=== PATIENT | male | born 1970 | race Caucasian/White ===

== ENCOUNTER 2016-04-17 10:09 | Emergency (ER) | payer OTHER ==
--- NOTE | 2016-04-17 10:35 | ERPHSYRPT ---
- History of Present Illness Time Seen by Provider: 04/17/16 10:25 Source: patient Exam Limitations: clinical condition Patient Subjective Stated Complaint: rt ankle pain Triage Nursing Assessment: noted swelling and pain to all over rt ankle for 4 days radiating to post calf. 2+ pitting edema noted. denies specific injury. bilat pedal pulse noted equal and strong Physician History: PATIENT WITH HISTORY OF DIABETES, INSULIN DEPENDENT, NONCOMPLIANT WITH DIET, COMPLAINS OF RIGHT ANKLE PAIN ASSOCIATED WITH SWELLING, PAIN UPON WEIGHT BEARING PAST 4 DAYS. DENIES HISTORY OF TRAUMA OR INJURY. Method of Injury: unknown Occurred: days ago Quality: constant, throbbing Severity of Pain-Max: moderate Severity of Pain-Current: moderate Lower Extremities Pain: ankle: right Modifying Factors: Improves With: movement Associated Symptoms: unable to bear weight (MARKED PAIN UPON WEIGHT BEARING) Allergies/Adverse Reactions: oxycodone [Oxycodone] Adverse Reaction (Verified 04/17/16 10:18) Home Medications: Insulin Regular, Human [Humulin R] 1 unit SQ UD 11/17/13 [History] NPH, Human Insulin Isophane [Humulin N] 25 unit SQ DAILY 11/17/13 [History] Gabapentin [Neurontin] 300 mg PO DAILY 01/11/14 [History] NPH, Human Insulin Isophane [Humulin N] 20 units SQ HS 01/11/14 [History] Insulin Glargine [Lantus Insulin] 10 unit SQ HS 04/17/16 [History] Hx Tetanus, Diphtheria Vaccination/Date Given: Yes Hx Influenza Vaccination/Date Given: No Hx Pneumococcal Vaccination/Date Given: No Immunizations Up to Date: Yes - Review of Systems Constitutional: No Symptoms Musculoskeletal: Injury, Joint Pain, Joint Swelling Neurological: No Symptoms Psychological: No Symptoms - Past Medical History Pertinent Past Medical History: Yes Neurological History: Peripheral Neuropathy ENT History: No Pertinent History Cardiac History: No Pertinent History Respiratory History: No Pertinent History Endocrine Medical History: Diabetes Type II Musculoskeletal History: Osteoarthritis GI Medical History: No Pertinent History History: No Pertinent History Psycho-Social History: No Pertinent History Male Reproductive Disorders: No Pertinent History Other Medical History: OSTEOMYLITIS - Past Surgical History Past Surgical History: Yes Neuro Surgical History: No Pertinent History Cardiac: No Pertinent History Respiratory: No Pertinent History Gastrointestinal: No Pertinent History Genitourinary: No Pertinent History Musculoskeletal: Orthopedic Surgery Male Surgical History: Other Other Surgical History: bilat feet. KNEE. HAND AND THUMB (r) - Social History Smoking Status: Current every day smoker How long have you smoked: 20 Exposure to second hand smoke: Yes Drug Use: none Patient Lives Alone: No - Nursing Vital Signs Nursing Vital Signs: Initial Vital Signs Temperature 98.1 F Temperature Source Oral Pulse Rate 103 Respiratory Rate 18 Blood Pressure [Right Arm] 129/72 Pain Intensity 4 - Physical Exam General Appearance: alert Neck Exam: normal inspection, other (NO WHEEZES OR RHONCHI) Cardiovascular/Respiratory Exam: chest non-tender, normal breath sounds, no JVD Back Exam: No vertebral tenderness Ankle Exam: right ankle: limited range of motion, pain, soft tissue tenderness ( BIMALLEOLAR TENDERNSS WITH SWELLING 2+ PITTNG EDEMA, BILATERAL PEDIS PULSES 2+) , swelling Foot Exam: bilateral foot: non-tender, swelling (RIGHT FOOT 2+ PITTING EDEMA, LEFT FOOT 1+ PITTING EDEMA, NONTENDER) Neuro/Tendon Exam: normal sensation, normal motor functions Mental Status Exam: alert, oriented x 3, cooperative Skin Exam: normal color, warm, dry SpO2 Interpretation: normal SpO2: 96 Oxygen Delivery: Room Air - Radiology Exams Right Ankle X-ray Interpretation: Interpreted by me (SOFT TISSUE SWELLING, NO EVIDENCE OF FRACTURE OR DIARRHEA) - Radiology Ultrasound Exam Right Venous Lower Extremity Ultrasound: discussed w/radiologist (NO EVIDENCE OF DVT) Ordered Tests: Active Orders 24 hr Category Date Time Status Crutches STAT Care 04/17/16 11:45 Ordered Splint STAT Care 04/17/16 11:46 Ordered ANKLE (3 VIEWS) Stat Exams 04/17/16 10:30 Completed VENOUS UNILAT/LIMITED EXTREMIT [US] Stat Exams 04/17/16 11:00 Completed - Progress Progress Note: 04/17/16 11:34 PATIENT REFUSED PAIN MEDICATIONS, PROVIDED VELCRO ANKLE SPLINT WITH CRUTCHES Counseled pt/family regarding: diagnosis, need for follow-up, rad results - Departure Time of Disposition: 12:00 Departure Disposition: Home Clinical Impression: RIGHT ANKLE STRAIN, DEPENDENT EDEMA LOWER EXTREMITIES Condition: Stable Critical Care Time: No Additional Instructions: AMBULATE USING CRUTCHES NONWEIGHT BEARING RIGHT FOOT FOR 1 WEEK. ELEVATE FEET WHILE SITTING OR SUPINE POSITION. TAKE LASIX 40MG EACH MORNING ALONG WITH KLOR CON 20MEQ DAILY FOR 5 DAYS TO REDUCE LEG AND FEET SWELLING. CONSULT YOUR FAMILY PHYSICIAN FOR FOLLOWUP IN 1 WEEK. Prescriptions: Furosemide 40 mg [Lasix 40 MG] 40 mg PO DAILY #5 tablet Potassium Chloride 20 Meq [Klor-Con 20 MEQ] 20 meq PO DAILY #5 tab
--- NOTE | 2016-04-17 11:09 | XRAY ---
Indication: Pain. No known injury. Comparison: None 3 views of the right ankle demonstrates mild soft tissue swelling and midfoot tarsal spurring. No other bony, articular, or soft tissue abnormalities.
--- NOTE | 2016-04-17 11:39 | XRAY ---
Indication: Pain and swelling. Two-dimensional sonogram and color Doppler imaging of the major venous vessels of the right leg was performed. Comparison: November 17, 2013. Again no thrombus seen in the examined deep venous vessels of the right leg including greater saphenous vein. Veins demonstrate normal compressibility. Venous waveforms are normal with and without augmentation. Impression: Right leg again negative for DVT.
[2016-04-17 12:03] VITALS: BP 136/88; PULSE 79; O2SAT 100
== END 2016-04-17 12:03 | disposition home or self-care (01) ==
LOC: ED 10:09
DX: S93.401A Sprain of unspecified ligament of right ankle, initial encounter (principal); R60.9 Edema, unspecified; E11.9 Type 2 diabetes mellitus without complications; Z79.4 Long term (current) use of insulin; G62.9 Polyneuropathy, unspecified
CPT/HCPCS: 73610; 93971; 99284

== ENCOUNTER 2016-10-03 13:04 | Emergency (ER) | payer OTHER ==
[2016-10-03] MEDS ORDERED: Sodium Chloride 0.9% 1000 ML 1,000 ML ONE (13:27)
[2016-10-03] MEDS ORDERED: Sodium Chloride 0.9% 1000 ML 1,000 ML IV SCH (13:30)
[2016-10-03 13:35] LABS: Mean Cell Volume 84.7 fl (78-100); Mean Corpuscular Hemoglobin 28.1 pg (26-32); Mean Platelet Volume 10.4 fl (6-9.5); Platelet Count 257 K/mm3 (150-450); Red Blood Count 5.37 M/mm3 (4.1-5.6); Red Cell Distribution Width 13.8 % (11.5-14.0); White Blood Count 14.3 K/mm3 (4.0-10.5)
[2016-10-03 13:40] LABS: VBG BASE EXCESS 5.5 (-2.0-2.0); VBG HCO3- 32.5 meq/L (22-28); VBG HEMOGLOBIN 15.8; VBG O2 SATURATION 31.9 (95-100); VBG POTASSIUM 4.7 (3.5-5.1); VBG pH 7.38 (7.32-7.42)
[2016-10-03 13:41] LABS: VBG CARBOXYHEMOGLOBIN 7.9 % T HGB (0.0-6.9)
[2016-10-03] MEDS ORDERED: Hydromorphone 1 mg/ml Ampule IV ONE (13:46)
[2016-10-03] MEDS ORDERED: Hydromorphone 1 mg/ml Ampule ONE (13:52)
--- NOTE | 2016-10-03 13:52 | ERPHSYRPT ---
- History of Present Illness Time Seen by Provider: 10/03/16 13:20 Source: patient, family Patient Subjective Stated Complaint: pt here to be evaluated for foot infection , enlarged lymph nodes. blood sugar high on home better, has taken 15u lantus, 7un reg, 30 n, has not check bs since. Triage Nursing Assessment: pt walked in, alert, resp easy, skin w/d pink, has post op shoe and dressing to foot, surg 09/06. 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 Pt was doing ok and had sutures removed. He has 3 days of foot pain, swelling, redness. Some chills. No fever. He had labs thru [facility] 3 days ago and was called and told he had an infection and was called out amoxil and flagyl which he is taking currently. He has swollen lymph nodes in the right groin and reports retracting right testicle since before his surgery. The lymph nodes are more swollen and more painful. Last tetanus vaccine up to date. Pain moderately severe. Sugar was hi at home. He was seen in office today for lab follow up and referred to ER for admission. He reports consideration of foot MRI and abdominal CT scan. Family notified Dr Tee- Coil Wrapper. Timing/Duration: day(s) (3) Severity: severe Allergies/Adverse Reactions: oxycodone [Oxycodone] Adverse Reaction (Verified 10/03/16 13:17) Home Medications: Insulin Regular, Human [Humulin R] 1 unit SQ UD 11/17/13 [History] NPH, Human Insulin Isophane [Humulin N] 30 unit SQ DAILY 11/17/13 [History] Gabapentin [Neurontin] 300 mg PO DAILY 01/11/14 [History] NPH, Human Insulin Isophane [Humulin N] 25 units SQ HS 01/11/14 [History] Insulin Glargine [Lantus Insulin] 15 unit SQ BID 04/17/16 [History] Amoxicillin/Potassium Clav [Augmentin 875 mg (Amox Tr-K Clv 875-125 mg)] 1 ea BID 10/03/16 [History] Ibuprofen 200 mg [Motrin 200 mg] 800 mg TID 10/03/16 [History] Metronidazole 500 mg [Flagyl 500 MG] 500 mg TID 10/03/16 [History] Hx Tetanus, Diphtheria Vaccination/Date Given: Yes Hx Influenza Vaccination/Date Given: No Hx Pneumococcal Vaccination/Date Given: No Immunizations Up to Date: Yes - Review of Systems Constitutional: Chills, No Fever Eyes: No Symptoms Ears, Nose, & Throat: No Symptoms Respiratory: No Cough, No Dyspnea Cardiac: No Chest Pain Abdominal/Gastrointestinal: Nausea (with abtx this AM), No Abdominal Pain, No Diarrhea Genitourinary Symptoms: No Dysuria Musculoskeletal: Joint Redness (right foot), No Back Pain, No Injury Neurological: No Focal Weakness, No Headache Psychological: Emotional Lability (irritable when in pain) All Other Systems: Reviewed and Negative - Past Medical History Pertinent Past Medical History: Yes Neurological History: Peripheral Neuropathy ENT History: No Pertinent History Cardiac History: No Pertinent History Respiratory History: No Pertinent History Endocrine Medical History: Diabetes Type II Musculoskeletal History: Osteoarthritis GI Medical History: No Pertinent History History: No Pertinent History Psycho-Social History: No Pertinent History Male Reproductive Disorders: No Pertinent History Other Medical History: Osteomyelitis - Past Surgical History Past Surgical History: Yes Neuro Surgical History: No Pertinent History Cardiac: No Pertinent History Respiratory: No Pertinent History Gastrointestinal: No Pertinent History Genitourinary: No Pertinent History Musculoskeletal: Orthopedic Surgery Male Surgical History: Testicular Surgery, Other Other Surgical History: bilat feet. KNEE. HAND AND THUMB (r) - Social History Smoking Status: Current every day smoker How long have you smoked: 20 Exposure to second hand smoke: Yes Drug Use: marijuana Patient Lives Alone: No - Nursing Vital Signs Nursing Vital Signs: Initial Vital Signs Temperature 99.0 F 10/03/16 13:06 Pulse Rate 99 H 10/03/16 13:06 Respiratory Rate 18 10/03/16 13:06 Blood Pressure 150/92 10/03/16 13:06 O2 Sat by Pulse Oximetry 99 10/03/16 13:06 Pain Scale Pain Intensity 8 - Physical Exam General Appearance: alert Eye Exam: PERRL/EOMI Ears, Nose, Throat Exam: normal ENT inspection, moist mucous membranes Neck Exam: normal inspection, supple Respiratory Exam: rhonchi, wheezing (mild) Cardiovascular Exam: regular rate/rhythm, tachycardia, No murmur Gastrointestinal/Abdomen Exam: soft, No tenderness, No distention, No mass, No guarding Male Genitalia Exam: normal genitalia, testicular tenderness (mild right, no mass or swelling, cremasteric intact.) Extremity Exam: other (right foot red, swollen, tender. Minimal drng lateral wound. Pulse intact. Appears to be deep space foot infection.) Neurologic Exam: alert, oriented x 3, cooperative, sensation nml, No motor deficits Skin Exam: warm, dry Lymphatic Exam: inguinal node tender (R) (multi) SpO2 Interpretation: normal SpO2: 99 Oxygen Delivery: Room Air - Course Nursing assessment & vital signs reviewed: Yes - Radiology Exams lower leg/foot X-ray Interpretation: Teleradiologist Report (post op change, swelling, subcut emphysema on lateral foot) Ordered Tests: Active Orders 24 hr Category Date Time Status ACCUCHECK [Accucheck] STAT Care 10/03/16 13:25 Active Clean Catch Urine Specimen STAT Care 10/03/16 13:20 Active IV Insertion STAT Care 10/03/16 13:20 Active FOOT (MINIMUM 3 VIEWS) Stat Exams 10/03/16 13:46 Completed LOWER LEG Stat Exams 10/03/16 13:46 Completed BLOOD CULTURE Stat Lab 10/03/16 13:25 Received CBC W DIFF Stat Lab 10/03/16 13:25 Completed CMP Stat Lab 10/03/16 13:25 Completed CULTURE,URINE Stat Lab 10/03/16 14:25 Received Erythrocyte Sedimentation Rate Stat Lab 10/03/16 13:25 Completed Lactic Acid Stat Lab 10/03/16 13:25 Completed Manual Differential NC Stat Lab 10/03/16 13:25 Completed UA W/ MICROSCOPIC Stat Lab 10/03/16 14:25 Completed VENOUS BLOOD GAS Stat Lab 10/03/16 13:25 Completed Medication Summary Generic Name Dose Route Start Last Admin Trade Name Freq PRN Reason Stop Dose Admin Sodium Chloride 1,000 mls @ 100 mls/hr 10/03/16 13:30 10/03/16 13:31 Sodium Chloride 0.9% 1000 Ml IV 11/02/16 13:29 100 mls/hr .Q10H ANY Administration Piperacillin Sod/Tazobactam Sod 3.375 gm in 100 mls @ 200 mls/hr 10/03/16 14: 45 10/03/16 14:54 Zosyn 3.375gm/100 Ml D5w IV 10/03/16 15:14 200 mls/hr STAT STA Administration Vancomycin HCl 1 gm/ Sodium 250 mls @ 167 mls/hr 10/03/16 15:00 10/03/16 15: 09 Chloride IV 10/03/16 16:30 167 mls/hr 1500 ANY Administration Discontinued Medications Generic Name Dose Route Start Last Admin Trade Name Freq PRN Reason Stop Dose Admin Hydromorphone HCl 1 mg 10/03/16 13:46 10/03/16 13:54 Hydromorphone 1 Mg/Ml Ampule IV 10/03/16 13:47 1 mg STAT ONE Administration Hydromorphone HCl Confirm 10/03/16 13:52 Hydromorphone 1 Mg/Ml Ampule Administered 10/03/16 13:53 Dose 1 mg .ROUTE .STK-MED ONE Piperacillin Sod/Tazobactam Sod Confirm 10/03/16 14:52 Zosyn 3.375gm/100 Ml D5w Administered 10/03/16 14:53 Dose 3.375 gm in 100 mls @ ud IV .STK-MED ONE Non-Formulary Medication 1 each 10/03/16 14:45 Pharmacy Dosing Request IJ 10/03/16 14:46 STAT ONE Lab/Rad Data: Laboratory Result Diagrams 10/03/16 13:25 10/03/16 13:25 Laboratory Results 10/03/16 10/03/16 10/03/16 Range/Units 14:25 13:25 13:25 WBC (4.0-10.5) K/mm3 RBC (4.1-5.6) M/mm3 Hgb (12.5-18.0) gm/dl Hct (42-50) % MCV (78-100) fl MCH (26-32) pg MCHC (32-36) g/dl RDW (11.5-14.0) % Plt Count (150-450) K/mm3 MPV (6-9.5) fl Segmented Neutrophils (36.-66.) % Lymphocytes (Manual) (24-44) % Monocytes (Manual) (0.0-12.0) % Eosinophils (Manual) (0.00-3.0) % Differential Comment Atypical Lymphocytes % Toxic Granulation Platelet Estimate (NORMAL) ESR (0-15) mm/hr VBG pH 7.38 (7.32-7.42) VBG pCO2 at Pat Temp 55 (42-55) mm/Hg VBG pO2 at Pat Temp 16 L (25-40) mm/Hg VBG HCO3 32.5 H* (22-28) meq/L VBG O2 Sat ([place]) 31.9 L (95-100) VBG Base Excess 5.5 H (-2.0-2.0) VBG Hemoglobin 15.8 VBG Carboxyhemoglobin 7.9 H* (0.0-6.9) % T HGB POC Potassium 4.7 (3.5-5.1) Sodium (136-145) mEq/L Potassium (3.5-5.1) mEq/L Chloride (98-107) mEq/L Carbon Dioxide (21-32) mEq/L Anion Gap (5-15) MEQ/L BUN (9-20) mg/dL Creatinine (0.55-1.30) mg/dl Estimated GFR ML/MIN Glucose (70-110) MG/DL Lactic Acid 1.5 (0.4-2.0) Calcium (8.5-10.1) mg/dL Total Bilirubin (0.2-1.0) mg/dL AST (15-37) U/L ALT (12-78) U/L Alkaline Phosphatase (46-116) U/L Serum Total Protein (6.4-8.2) gm/dL Albumin (3.4-5.0) g/dL Ur Collection Type VOID Urine Color YELLOW (YELLOW) Urine Appearance CLEAR (CLEAR) Urine pH 5.0 (5-6) Ur Specific [place] 1.020 (1.005-1.025) Urine Protein 3+ (Negative) Urine Ketones NEGATIVE (NEGATIVE) Urine Blood 250 (0-5) Freddie/ul Urine Nitrite NEGATIVE (NEGATIVE) Urine Bilirubin NEGATIVE (NEGATIVE) Urine Urobilinogen NORMAL (0-1) mg/dL Ur Leukocyte Esterase TRACE (NEGATIVE) Urine Microscopic RBC 0-2 (0-2) /HPF Urine Microscopic WBC 5-10 (0-5) /HPF Ur Epithelial Cells FEW (FEW) /HPF Urine Bacteria MODERATE (NEGATIVE) /HPF Hyaline Casts 2-5 (0-2) /LPF Urine Glucose 250 (NEGATIVE) mg/dL Specimen Received 8/17/17 1425 10/03/16 10/03/16 10/03/16 Range/Units 13:25 13:25 13:25 WBC 14.3 H (4.0-10.5) K/mm3 RBC 5.37 (4.1-5.6) M/mm3 Hgb 15.1 (12.5-18.0) gm/dl Hct 45.5 (42-50) % MCV 84.7 (78-100) fl MCH 28.1 (26-32) pg MCHC 33.2 (32-36) g/dl RDW 13.8 (11.5-14.0) % Plt Count 257 (150-450) K/mm3 MPV 10.4 H (6-9.5) fl Segmented Neutrophils 66 (36.-66.) % Lymphocytes (Manual) 22 L (24-44) % Monocytes (Manual) 9 (0.0-12.0) % Eosinophils (Manual) 1 (0.00-3.0) % Differential Comment NORMAL Atypical Lymphocytes 2 % Toxic Granulation 1+ Platelet Estimate NORMAL (NORMAL) ESR 7 (0-15) mm/hr VBG pH (7.32-7.42) VBG pCO2 at Pat Temp (42-55) mm/Hg VBG pO2 at Pat Temp (25-40) mm/Hg VBG HCO3 (22-28) meq/L VBG O2 Sat ([place]) (95-100) VBG Base Excess (-2.0-2.0) VBG Hemoglobin VBG Carboxyhemoglobin (0.0-6.9) % T HGB POC Potassium (3.5-5.1) Sodium 136 (136-145) mEq/L Potassium 4.5 (3.5-5.1) mEq/L Chloride 99 (98-107) mEq/L Carbon Dioxide 29.1 (21-32) mEq/L Anion Gap 12.8 (5-15) MEQ/L BUN 29 H (9-20) mg/dL Creatinine 1.65 H (0.55-1.30) mg/dl Estimated GFR 48 ML/MIN Glucose 213 H (70-110) MG/DL Lactic Acid (0.4-2.0) Calcium 9.5 (8.5-10.1) mg/dL Total Bilirubin 0.20 (0.2-1.0) mg/dL AST 12 L (15-37) U/L ALT 15 (12-78) U/L Alkaline Phosphatase 92 (46-116) U/L Serum Total Protein 7.9 (6.4-8.2) gm/dL Albumin 3.0 L (3.4-5.0) g/dL Ur Collection Type Urine Color (YELLOW) Urine Appearance (CLEAR) Urine pH (5-6) Ur Specific [place] (1.005-1.025) Urine Protein (Negative) Urine Ketones (NEGATIVE) Urine Blood (0-5) Freddie/ul Urine Nitrite (NEGATIVE) Urine Bilirubin (NEGATIVE) Urine Urobilinogen (0-1) mg/dL Ur Leukocyte Esterase (NEGATIVE) Urine Microscopic RBC (0-2) /HPF Urine Microscopic WBC (0-5) /HPF Ur Epithelial Cells (FEW) /HPF Urine Bacteria (NEGATIVE) /HPF Hyaline Casts (0-2) /LPF Urine Glucose (NEGATIVE) mg/dL Specimen Received - Progress Progress Note: 10/03/16 13:53 Explained plan to patient including labs and xray. He will need admission and IV abtx. May need transferred to his surgeon. 10/03/16 14:49 He has post op diabetic deep space infection. Lymph nodes in groin likely reactive but need to be followed. Called Dr Jeff who advised best to transfer to his surgeon. Called Dr Toni Lopez his foot surgeon who advised transfer to [facility]. Paging hospitalist thru transfer nurse. Pt and family aware and agree with plan. 10/03/16 15:[address] Celestina Woody. She and Dr Lopez accept transfer to [facility]. Counseled pt/family regarding: lab results, diagnosis, need for follow-up, rad results, smoking cessation - Departure Time of Disposition: 15:17 Departure Disposition: Transfer ([facility]) Clinical Impression: Type 2 diabetes mellitus with right diabetic foot infection, Inguinal lymphadenitis, Acute kidney injury Condition: Fair Critical Care Time: No Referrals: DESHAWN SANTILLAN [Primary Care Provider] -
[2016-10-03 13:58] LABS: ANION GAP 12.8 MEQ/L (5-15); BILIRUBIN,TOTAL 0.2 mg/dL (0.2-1.0); Carbon Dioxide 29.1 mEq/L (21-32); Potassium 4.5 mEq/L (3.5-5.1); Total Protein 7.9 gm/dL (6.4-8.2)
--- NOTE | 2016-10-03 14:26 | XRAY ---
Indication: Ankle/foot cellulitis. Comparison: November 17, 2013. 2 views of the right lower leg again demonstrates medial/lateral knee mild degenerative changes minimally worsened. No new/acute bony, articular, or soft tissue abnormalities.
--- NOTE | 2016-10-03 14:30 | XRAY ---
Indication: Ankle/foot cellulitis. Comparison: None. 3 nonweightbearing views of the right foot demonstrates tiny posterior heel spur, moderate degenerative changes of the mid tarsal bones, 2nd cuneiform deformity presumed from old injury, and remote appearing resection of the distal 4th/5h metatarsals. There is forefoot soft tissue swelling greatest adjacent to the 5th metatarsal where there is subtle soft tissue radiolucency concerning for gas-forming bacterial infection. No suspicious bony lesions or osseous destructive process. Impression: 1. Forefoot soft tissue swelling with subtle soft tissue emphysema laterally concerning for gas-forming bacterial infection. No evidence for osteomyelitis. 2. Mid tarsal degenerative changes and remote appearing 2nd cuneiform deformity. 3. Distal 4th/5th metatarsal resection.
[2016-10-03 14:32] LABS: ADD URINE CULTURE? YES (NO); Bilirubin NEGATIVE (NEGATIVE); Blood 250 Ery/ul (0-5); COMPLETE URINE MICROSCOPIC? YES; Collection Type VOID; Glucose 250 mg/dL (NEGATIVE); Leukocyte Esterase TRACE (NEGATIVE)
[2016-10-03 14:38] LABS: Bacteria MODERATE /HPF (NEGATIVE); Epithelial Cells FEW /HPF (FEW)
[2016-10-03] MEDS ORDERED: PHARMACY DOSING REQUEST IJ ONE (14:45)
[2016-10-03] MEDS ORDERED: Zosyn 3.375GM/100 Ml D5W 3.375 GM/100 ML IVPB IV STA (14:45)
[2016-10-03 14:46] LABS: ATYPICAL LYMPHS 2 %; Eosinophil 1 % (0.00-3.0); Total Cells Counted 100; Toxic Granulation 1+
[2016-10-03 14:47] LABS: Platelet Estimate NORMAL (NORMAL)
[2016-10-03] MEDS ORDERED: Zosyn 3.375GM/100 Ml D5W 3.375 GM/100 ML IVPB IV ONE (14:52)
[2016-10-03] MEDS ORDERED: VANCOCIN 1 GM VIAL*** 1 GM in Sodium Chloride 0.9% 250 ML 250 ML IV SCH (15:00)
[2016-10-03 15:16] VITALS: BP 131/86; PULSE 99
[2016-10-03 15:18] VITALS: O2SAT 99
== END 2016-10-03 16:01 ==
LOC: ED 13:04
DX: L08.89 Other specified local infections of the skin and subcutaneous tissue (principal); E13.9 Other specified diabetes mellitus without complications; I88.8 Other nonspecific lymphadenitis; N17.9 Acute kidney failure, unspecified
CPT/HCPCS: 36000; 36415; 73590; 73630; 80053; 81000; 82805; 82962; 83605; 85025; 85652; 87040; 87086; 96360; 96361; 96365; 96366; 96367; 96374; 99285; J1170; J2543; J3370

== ENCOUNTER 2017-11-29 07:49 | Emergency (ER) | payer OTHER ==
[2017-11-29] MEDS ORDERED: Lasix 40 MG/4 ML IV ONE (08:02)
[2017-11-29] MEDS ORDERED: DUONEB 0.5-3 MG/3 ml Neb IH ONE ×2 (08:02→08:28)
[2017-11-29] MEDS ORDERED: Lasix 40 MG/4 ML ONE (08:10)
--- NOTE | 2017-11-29 08:10 | ERPHSYRPT ---
- History of Present Illness Time Seen by Provider: 11/29/17 08:05 Source: patient, family () Exam Limitations: clinical condition Physician History: The patient is a 47-year-old male with his complaining of intermittent episodes of severe shortness of breath that have been worsening over the last 3 days. He saw a nurse practitioner in [facility] [place] and was given medications for bronchitis that included albuterol nebulizer treatments and inhaled corticosteroids. He has continued to have episodes of shortness of breath since being seen. He rarely has a cough. His states that when he lays flat to try to sleep, his breathing gets worse and improves when he sits up. This morning he tried 3 breathing treatments without relief. For the past 2 days breathing treatments of seem to help but sometimes he must take more than one. He has been swelling in his lower legs for the past 1-2 weeks. He has had a gangrenous infection of his left foot for several months. On Friday he had an amputation of his left fore foot and currently has a wound VAC draining area. He is on IV vancomycin and fluconazole. Yesterday he was informed that he had Harriet in his blood. His treatment for his foot and many other issues have been at [facility]. Currently he denies fever or chills. His past medical history is significant for diabetes, hypertension, congestive heart failure, depression, peripheral neuropathy, recent left forefoot amputation, osteomyelitis, and blood-borne candidiasis. Timing/Duration: day(s) (3), intermittent, gradual onset, worse Activities at Onset: sleep Severity of Dyspnea-Max: severe Severity of Dyspnea-Current: severe Possible Cause: no prior episodes Modifying Factors: Improves With: albuterol nebulizer, lying down (worse). Worsens With: coughing Associated Symptoms: edema, leg swelling, No cough, No wheezing Allergies/Adverse Reactions: oxycodone [Oxycodone] Adverse Reaction (Verified 11/29/17 08:08) Home Medications: Insulin Regular, Human [Humulin R] 1 unit SQ UD 11/17/13 [History] Gabapentin [Neurontin] 600 mg PO DAILY 01/11/14 [History] Insulin Glargine [Lantus Insulin] 20 unit SQ BID 04/17/16 [History] Ibuprofen 200 mg [Motrin 200 mg] 800 mg TID 10/03/16 [History] Azithromycin [Zithromax Tri-Sebastian] 500 mg DAILY 11/29/17 [History] Fluconazole 200 mg BID 11/29/17 [History] Furosemide 40 mg [Lasix 40 MG] 40 mg BID 11/29/17 [History] Metoprolol Tartrate 25 mg [Lopressor 25MG Tab] 25 mg DAILY 11/29/17 [ History] Minocycline HCl [Minocin] 100 mg PO BID 11/29/17 [History] Oxycodone HCl/Acetaminophen [Percocet 5-325 mg Tablet] 1 ea QID 11/29/17 [ History] Promethazine HCl 25 mg [Phenergan 25 mg] 25 mg QID PRN 11/29/17 [History] Vancomycin HCl in Dextrose 5 % [Vancomycin 1.5 Gram/250 ml-D5w] 1.5 gm BID 11/29 [History] Hx Tetanus, Diphtheria Vaccination/Date Given: Yes Hx Influenza Vaccination/Date Given: No Hx Pneumococcal Vaccination/Date Given: No - Review of Systems Constitutional: No Fever, No Chills Eyes: No Symptoms Ears, Nose, & Throat: No Symptoms Respiratory: Dyspnea, Dyspnea on Exertion (AGUAYO) Cardiac: No Chest Pain, No Edema, No Syncope Abdominal/Gastrointestinal: No Abdominal Pain, No Nausea, No Vomiting, No Diarrhea Genitourinary Symptoms: No Dysuria Musculoskeletal: No Back Pain, No Neck Pain Skin: No Symptoms Neurological: No Dizziness, No Focal Weakness, No Sensory Changes Psychological: No Symptoms Endocrine: No Symptoms Hematologic/Lymphatic: No Symptoms Immunological/Allergic: No Symptoms All Other Systems: Reviewed and Negative - Past Medical History Pertinent Past Medical History: Yes Neurological History: Peripheral Neuropathy ENT History: No Pertinent History Cardiac History: No Pertinent History Respiratory History: No Pertinent History Endocrine Medical History: Diabetes Type II Musculoskeletal History: Osteoarthritis GI Medical History: No Pertinent History History: No Pertinent History Psycho-Social History: No Pertinent History Male Reproductive Disorders: No Pertinent History Other Medical History: Osteomyelitis - Past Surgical History Past Surgical History: Yes Neuro Surgical History: No Pertinent History Cardiac: No Pertinent History Respiratory: No Pertinent History Gastrointestinal: No Pertinent History Genitourinary: No Pertinent History Musculoskeletal: Orthopedic Surgery Male Surgical History: Testicular Surgery, Other Other Surgical History: bilat feet. KNEE. HAND AND THUMB (r) - Social History Smoking Status: Current every day smoker How long have you smoked: 20 Exposure to second hand smoke: Yes Drug Use: marijuana Patient Lives Alone: No - Nursing Vital Signs Nursing Vital Signs: Initial Vital Signs Temperature 97.4 F 11/29/17 07:53 Pulse Rate 108 H 11/29/17 07:53 Respiratory Rate 40 H 11/29/17 07:53 Blood Pressure 168/95 11/29/17 07:53 O2 Sat by Pulse Oximetry 64 L 11/29/17 07:53 Pain Scale Pain Intensity 0 - Physical Exam General Appearance: severe distress Eye Exam: PERRL/EOMI Ears, Nose, Throat Exam: hearing grossly normal Neck Exam: normal inspection, supple Respiratory Exam: crackles/rales Cardiovascular/Chest Exam: normal heart sounds, tachycardia Abdominal/Gastrointestinal Exam: soft, No tenderness, No distention, No mass Rectal Exam: not done Extremity Exam: pedal edema (3+), swelling (eye lid swelling) Neurologic Exam: alert, oriented x 3, cooperative, 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 tested, sensation nml, No motor deficits Skin Exam: normal color, warm, No dry SpO2 Interpretation: hypoxic, ABG ordered, O2 applied Oxygen Delivery: Non-rebreather - Course EKG Interpreted by Me: RATE, Sinus Tach, NORMAL AXIS, NORMAL INTERVALS, NORMAL QRS, NORMAL ST-T - Radiology Exams Chest X-ray Interpretation: Interpreted by me, Other (1 V chest with new diffuse pulmonary edema, comp 2V chest 11/27/17) Ordered Tests: Active Orders 24 hr Category Date Time Status Principal Automation Engineer STAT Care 11/29/17 08:03 Active Catheter-Argyle [place] STAT Care 11/29/17 08:28 Active EKG-ER Only STAT Care 11/29/17 08:02 Active IV Insertion STAT Care 11/29/17 08:02 Active Oxygen-ED Only NON-REBREATHER 100% Care 11/29/17 08:02 Active CHEST 1 VIEW (PORTABLE) Stat Exams 11/29/17 08:03 Taken ARTERIAL BLOOD GASES Stat Lab 11/29/17 08:02 Results BLOOD CULTURE Stat Lab 11/29/17 08:10 Received CBC W DIFF Stat Lab 11/29/17 08:02 Completed CMP Stat Lab 11/29/17 08:05 Completed D-DIMER QUANTITATION Stat Lab 11/29/17 08:05 Completed Lactic Acid Stat Lab 11/29/17 08:02 Results Manual Differential NC Stat Lab 11/29/17 08:02 Completed NT PRO BNP Stat Lab 11/29/17 08:05 Completed PROTIME WITH INR Stat Lab 11/29/17 08:05 Completed PTT Stat Lab 11/29/17 08:05 Completed TROPONIN Q3H Lab 11/29/17 08:05 Completed TROPONIN Q3H Lab 11/29/17 11:15 Ordered TROPONIN Q3H Lab 11/29/17 14:15 Ordered TROPONIN Q3H Lab 11/29/17 17:15 Ordered TROPONIN Q3H Lab 11/29/17 20:15 Ordered UA W/RFX UR CULTURE Stat Lab 11/29/17 08:58 Ordered BiPap/CPAP STAT RT 11/29/17 08:02 Completed Respiratory Nebulizer STAT RT 11/29/17 08:04 Completed Respiratory Therapy Assessment DAILY RT 11/29/17 08:31 Completed Medication Summary Discontinued Medications Generic Name Dose Route Start Last Admin Trade Name Freq PRN Reason Stop Dose Admin Albuterol/Ipratropium 3 ml 11/29/17 08:02 11/29/17 08:32 Duoneb 0.5-3 Mg/3 Ml Neb IH 11/29/17 08:03 3 ml STAT ONE Administration Albuterol/Ipratropium Confirm 11/29/17 08:28 Duoneb 0.5-3 Mg/3 Ml Neb Administered 11/29/17 08:29 Dose 3 ml IH .STK-MED ONE Furosemide 40 mg 11/29/17 08:02 11/29/17 08:21 Lasix 40 Mg/4 Ml IV 11/29/17 08:03 40 mg STAT ONE Administration Furosemide Confirm 11/29/17 08:10 Lasix 40 Mg/4 Ml Administered 11/29/17 08:11 Dose 40 mg .ROUTE .STK-MED ONE Lab/Rad Data: Laboratory Result Diagrams 11/29/17 08:02 11/29/17 08:05 Laboratory Results 11/29/17 11/29/17 11/29/17 Range/Units 08:05 08:05 08:05 WBC (4.0-10.5) K/mm3 RBC (4.1-5.6) M/mm3 Hgb (12.5-18.0) gm/dl Hct (42-50) % MCV (78-100) fl MCH (26-32) pg MCHC (32-36) g/dl RDW (11.5-14.0) % Plt Count (150-450) K/mm3 MPV (6-9.5) fl Absolute Granulocytes (1.4-6.9) Segmented Neutrophils (36.-66.) % Band Neutrophils (0.0-2.0) % Lymphocytes (Manual) (24-44) % Monocytes (Manual) (0.0-12.0) % Platelet Estimate (NORMAL) RBC Morphology PT 15.9 H (8.83-12.87) SECONDS INR 1.36 (0.8-3.0) APTT 27.7 (24.1-36.1) SECONDS D-Dimer 2254 H* (215-500) ng/mL Puncture Site pCO2 (35-45) mmHg pO2 (75-100) mmHg Base Excess (-2.0-2.0) O2 Saturation (94-100) g/dF ABG pH (7.35-7.45) ABG HCO3 (22-28) ABG O2 Sat (Measured) (95-100) % Parker Test A-a Gradient a/A Ratio Hemoglobin Carboxyhemoglobin (0.0-6.9) % THgb Methemoglobin (1.4-1.5) % Potassium 4.2 (3.5-5.1) Temperature C POC O2 Flow Rate % Vent Mode Inspiratory BiPAP Expiratory BiPAP Sodium 137 (137-145) mmol/L Chloride 100 (98-107) mmol/L Carbon Dioxide 16 L* (22-30) mmol/L Anion Gap 25.4 H (5-15) MEQ/L BUN 25 H (9-20) mg/dL Creatinine 1.90 H (0.66-1.25) mg/dL Estimated GFR 40.9 ML/MIN Glucose 285 H (74-106) mg/dL Lactic Acid (0.4-2.0) Calcium 8.7 (8.4-10.2) mg/dL Total Bilirubin 0.90 (0.2-1.3) mg/dL AST 49 (17-59) U/L ALT 42 (0-50) U/L Alkaline Phosphatase 206 H (38-126) U/L Troponin I 0.030 (0.000-0.034) ng/mL NT-Pro-B Natriuret Pep 3060 H (0-450) pg/mL Serum Total Protein 7.5 (6.3-8.2) g/dL Albumin 3.9 (3.5-5.0) g/dL 11/29/17 11/29/17 Range/Units 08:02 08:02 WBC 24.5 H (4.0-10.5) K/mm3 RBC 3.63 L (4.1-5.6) M/mm3 Hgb 10.1 L (12.5-18.0) gm/dl Hct 30.3 L (42-50) % MCV 83.5 (78-100) fl MCH 27.8 (26-32) pg MCHC 33.3 (32-36) g/dl RDW 14.1 H (11.5-14.0) % Plt Count 363 (150-450) K/mm3 MPV 9.3 (6-9.5) fl Absolute Granulocytes 21.95 H (1.4-6.9) Segmented Neutrophils 96 H (36.-66.) % Band Neutrophils 1 (0.0-2.0) % Lymphocytes (Manual) 2 L (24-44) % Monocytes (Manual) 1 (0.0-12.0) % Platelet Estimate NORMAL (NORMAL) RBC Morphology NORMAL PT (8.83-12.87) SECONDS INR (0.8-3.0) APTT (24.1-36.1) SECONDS D-Dimer (215-500) ng/mL Puncture Site RIGHT RADIAL pCO2 26 L (35-45) mmHg pO2 113 H (75-100) mmHg Base Excess -7.0 L (-2.0-2.0) O2 Saturation 92.9 L (94-100) g/dF ABG pH 7.41 (7.35-7.45) ABG HCO3 16.5 L* (22-28) ABG O2 Sat (Measured) 99.1 (95-100) % Parker Test YES A-a Gradient 568 a/A Ratio 0.17 Hemoglobin 9.7 Carboxyhemoglobin 5.8 (0.0-6.9) % THgb Methemoglobin 0.5 L (1.4-1.5) % Potassium 4.0 (3.5-5.1) Temperature 37.0 C POC O2 Flow Rate 100 % Vent Mode BiPAP Inspiratory BiPAP 14 Expiratory BiPAP 8 Sodium (137-145) mmol/L Chloride (98-107) mmol/L Carbon Dioxide (22-30) mmol/L Anion Gap (5-15) MEQ/L BUN (9-20) mg/dL Creatinine (0.66-1.25) mg/dL Estimated GFR ML/MIN Glucose (74-106) mg/dL Lactic Acid 4.6 H (0.4-2.0) Calcium (8.4-10.2) mg/dL Total Bilirubin (0.2-1.3) mg/dL AST (17-59) U/L ALT (0-50) U/L Alkaline Phosphatase (38-126) U/L Troponin I (0.000-0.034) ng/mL NT-Pro-B Natriuret Pep (0-450) pg/mL Serum Total Protein (6.3-8.2) g/dL Albumin (3.5-5.0) g/dL - Progress Air Movement: good Progress Note: 11/29/17 09:08 Pt creatinine clearance is too low to perform chest CT for PE. Blood Culture(s) Obtained: Yes Antibiotics given: No (plt already on IV antibiotics upon arrival) Discussed with DrKo: Other (Dr Richards at [facility]) - Departure Time of Disposition: 09:28 Departure Disposition: Transfer (Transfer to [facility] per Dr Richards) Clinical Impression: Dyspnea, CHF (congestive heart failure), Elevated d-dimer Condition: Stable Critical Care Time: No Referrals: [facility] [Primary Care Provider] - Instructions: Heart Failure
[2017-11-29 08:13] LABS: A-aADO2 568; ABG HEMOGLOBIN 9.7; ARTERIAL BLD GAS O2 SATURATION 99.1 % (95-100); ARTERIAL BLOOD GAS FIO2 100 %; ARTERIAL BLOOD GAS PCO2 26 mmHg (35-45); ARTERIAL BLOOD GAS PO2 113 mmHg (75-100); ARTERIAL BLOOD GAS VENT MODE BiPAP; ARTERIAL BLOOD GAS pH 7.41 (7.35-7.45); CARBOXYHEMOGLOBIN 5.8 % THgb (0.0-6.9); HCO3- 16.5 (22-28); HGB O2 SAT 92.9 g/dF (94-100); Lactic Acid 4.6 (0.4-2.0); Methhemoglobin 0.5 % (1.4-1.5); paO2 pAO1 0.17
[2017-11-29 08:14] LABS: ABG SITE RIGHT RADIAL; ALLEN TEST OK? YES
[2017-11-29 08:15] LABS: Granulocyte Absolute (ANC) 21.95 (1.4-6.9); Hematocrit 30.3 % (42-50); Hemoglobin 10.1 gm/dl (12.5-18.0); Mean Cell Volume 83.5 fl (78-100); Mean Corpuscular Hemoglobin 27.8 pg (26-32); Mean Corpuscular Hgb Concent. 33.3 g/dl (32-36); Mean Platelet Volume 9.3 fl (6-9.5); Platelet Count 363 K/mm3 (150-450); Red Blood Count 3.63 M/mm3 (4.1-5.6); Red Cell Distribution Width 14.1 % (11.5-14.0); White Blood Count 24.5 K/mm3 (4.0-10.5)
[2017-11-29 08:30] LABS: INR 1.36 (0.8-3.0)
[2017-11-29 08:33] LABS: PTT 27.7 SECONDS (24.1-36.1)
[2017-11-29 08:44] LABS: ALBUMIN 3.9 g/dL (3.5-5.0); ANION GAP 25.4 MEQ/L (5-15); BILIRUBIN,TOTAL 0.9 mg/dL (0.2-1.3); Calcium 8.7 mg/dL (8.4-10.2); Creatinine 1 1.9 mg/dL (0.66-1.25); Potassium 4.2 mmol/L (3.5-5.1); Total Protein 7.5 g/dL (6.3-8.2)
[2017-11-29 09:03] LABS: BAND 1 % (0.0-2.0); Lymphocytes 2 % (24-44); Monocyte 1 % (0.0-12.0); Neutrophils 96 % (36.-66.); Total Cells Counted 100
[2017-11-29 09:04] LABS: Platelet Estimate NORMAL (NORMAL)
[2017-11-29 09:11] VITALS: BP 160/97
[2017-11-29 09:40] LABS: Appearance CLOUDY (CLEAR); Bilirubin NEGATIVE (NEGATIVE); Blood MODERATE Ery/ul (0-5); Glucose 50 mg/dL (NEGATIVE); Ketones NEGATIVE (NEGATIVE); Leukocyte Esterase NEGATIVE (NEGATIVE); Nitrite NEGATIVE (NEGATIVE); Protein,Urine Dip 100 (Negative); Specific Gravity 1.014 (1.005-1.025); Urobilinogen NEGATIVE mg/dL (0-1)
[2017-11-29 09:45] LABS: A-aADO2 592; ABG HEMOGLOBIN 9.5; ABG POTASSIUM 3.9 (3.5-5.1); ARTERIAL BLD GAS O2 SATURATION 97.6 % (95-100); ARTERIAL BLOOD GAS BASE EXCESS -2.5 (-2.0-2.0); ARTERIAL BLOOD GAS FIO2 100 %; ARTERIAL BLOOD GAS PCO2 31 mmHg (35-45); ARTERIAL BLOOD GAS PO2 82 mmHg (75-100); ARTERIAL BLOOD GAS VENT MODE BiPAP; ARTERIAL BLOOD GAS pH 7.44 (7.35-7.45); CARBOXYHEMOGLOBIN 2.7 % THgb (0.0-6.9); HCO3- 21.1 (22-28); HGB O2 SAT 94.3 g/dF (94-100); Methhemoglobin 0.6 % (1.4-1.5); paO2 pAO1 0.12
[2017-11-29 09:46] LABS: ABG SITE RIGHT RADIAL; ALLEN TEST OK? YES
[2017-11-29 09:49] VITALS: PULSE 97; O2SAT 97
--- NOTE | 2017-11-29 19:27 | XRAY ---
Indication: Short of breath and cough. Comparison: November 27, 2017. Portable chest demonstrates new diffuse air space disease without consolidation or large effusion. Heart is not enlarged for AP portable technique.
== END 2017-11-29 09:55 | disposition short-term general hospital (02) ==
LOC: ED 07:49
DX: I50.9 Heart failure, unspecified (principal); R06.00 Dyspnea, unspecified; R79.1 Abnormal coagulation profile; Z89.432 Acquired absence of left foot; Z79.899 Other long term (current) drug therapy; E11.9 Type 2 diabetes mellitus without complications; Z79.4 Long term (current) use of insulin
CPT/HCPCS: 36415; 36600; 51702; 71045; 80053; 81001; 82375; 82803; 82962; 83605; 83880; 84484; 85025; 85379; 85610; 85730; 87040; 87086; 93005; 93041; 94002; 94640; 96374; 99285; J1940; A9270-GY

== ENCOUNTER 2018-06-20 06:29 | Emergency (ER) | payer OTHER ==
[2018-06-20 06:51] VITALS: O2SAT 98
--- NOTE | 2018-06-20 07:31 | ERPHSYRPT ---
- History of Present Illness Time Seen by Provider: 06/20/18 07:28 Source: patient Exam Limitations: no limitations Patient Subjective Stated Complaint: pt states he was getting up to go to the bathroom at 0100 and fell out of bed. states he fell on his rt shoulder and rt knee and is hacing pain in both now. Triage Nursing Assessment: pt alert and oriented, answers questions approp. respirations nonlabored with lungs cta. skin pink warm and dry. no bruising noted to rt shoulder or knee. wound vac noted to lt foot. Physician History: 48 years old male came to ER states he was getting up to go to the bathroom at 0100 and fell out of bed. states he fell on his right shoulder and rt knee and is having pain in both now. Timing/Duration: today Associated Symptoms: denies symptoms Allergies/Adverse Reactions: oxycodone [Oxycodone] Adverse Reaction (Verified 06/20/18 06:51) Home Medications: Insulin Regular, Human [Humulin R] 1 unit SQ UD 11/17/13 [History] Gabapentin [Neurontin] 600 mg PO DAILY 01/11/14 [History] Insulin Glargine [Lantus Insulin] 20 unit SQ BID 04/17/16 [History] Ibuprofen 200 mg [Motrin 200 mg] 800 mg TID 10/03/16 [History] Azithromycin [Zithromax Tri-Sebastian] 500 mg DAILY 11/29/17 [History] Fluconazole 200 mg BID 11/29/17 [History] Furosemide 40 mg [Lasix 40 MG] 40 mg BID 11/29/17 [History] Metoprolol Tartrate 25 mg [Lopressor 25MG Tab] 25 mg DAILY 11/29/17 [ History] Minocycline HCl [Minocin] 100 mg PO BID 11/29/17 [History] Oxycodone HCl/Acetaminophen [Percocet 5-325 mg Tablet] 1 ea QID 11/29/17 [ History] Promethazine HCl 25 mg [Phenergan 25 mg] 25 mg QID PRN 11/29/17 [History] Vancomycin HCl in Dextrose 5 % [Vancomycin 1.5 Gram/250 ml-D5w] 1.5 gm BID 11/29 [History] Hx Tetanus, Diphtheria Vaccination/Date Given: Yes Hx Influenza Vaccination/Date Given: No Hx Pneumococcal Vaccination/Date Given: No Immunizations Up to Date: Yes - Review of Systems Constitutional: No Fever, No Chills Eyes: No Symptoms Ears, Nose, & Throat: No Symptoms Respiratory: No Cough, No Dyspnea Cardiac: No Chest Pain, No Edema, No Syncope Abdominal/Gastrointestinal: No Abdominal Pain, No Nausea, No Vomiting, No Diarrhea Genitourinary Symptoms: No Dysuria Musculoskeletal: No Back Pain, No Neck Pain Skin: Other (bed bugs), No Rash Neurological: No Dizziness, No Focal Weakness, No Sensory Changes Psychological: No Symptoms Endocrine: No Symptoms Hematologic/Lymphatic: No Symptoms Immunological/Allergic: No Symptoms All Other Systems: Reviewed and Negative - Past Medical History Pertinent Past Medical History: Yes Neurological History: Peripheral Neuropathy ENT History: No Pertinent History Cardiac History: No Pertinent History Respiratory History: No Pertinent History Endocrine Medical History: Diabetes Type II Musculoskeletal History: Osteoarthritis GI Medical History: No Pertinent History History: No Pertinent History Psycho-Social History: Anxiety, Panic Disorder Male Reproductive Disorders: No Pertinent History Other Medical History: Osteomyelitis, charcot foot, ptsd - Past Surgical History Past Surgical History: Yes Neuro Surgical History: No Pertinent History Cardiac: No Pertinent History Respiratory: No Pertinent History Gastrointestinal: No Pertinent History Genitourinary: No Pertinent History Musculoskeletal: Orthopedic Surgery Male Surgical History: Testicular Surgery, Other Other Surgical History: bilat feet. KNEE. HAND AND THUMB (r) - Social History Smoking Status: Current every day smoker How long have you smoked: 20+ Exposure to second hand smoke: Yes Drug Use: marijuana Patient Lives Alone: No - Nursing Vital Signs Nursing Vital Signs: Initial Vital Signs Temperature 98.7 F 06/20/18 06:36 Pulse Rate 86 06/20/18 06:36 Respiratory Rate 18 06/20/18 06:36 Blood Pressure 147/84 06/20/18 06:36 O2 Sat by Pulse Oximetry 98 06/20/18 06:36 Pain Scale Pain Intensity 9 - Physical Exam General Appearance: no apparent distress, alert Eye Exam: PERRL/EOMI, eyes nml inspection Ears, Nose, Throat Exam: normal ENT inspection, TMs normal, pharynx normal, moist mucous membranes Neck Exam: normal inspection, non-tender, supple, full range of motion Respiratory Exam: normal breath sounds, lungs clear, No respiratory distress Cardiovascular Exam: regular rate/rhythm, normal heart sounds, normal peripheral pulses Gastrointestinal/Abdomen Exam: soft, normal bowel sounds, No tenderness, No mass Back Exam: normal inspection, normal range of motion, No CVA tenderness, No vertebral tenderness Extremity Exam: normal inspection, normal range of motion, pelvis stable Neurologic Exam: alert, oriented x 3, cooperative, normal mood/affect, nml cerebellar function, nml station & gait, sensation nml, No motor deficits Skin Exam: normal color, warm, dry, other (bad bugs), No rash Lymphatic Exam: No adenopathy SpO2: 98 - Course Nursing assessment & vital signs reviewed: Yes - Radiology Exams Knee X-ray Interpretation: Reviewed by me, Negative, No Fracture Shoulder X-ray Interpretation: Reviewed by me, Negative, No Fracture, No Subluxation Ordered Tests: Active Orders 24 hr Category Date Time Status HEAD WITHOUT CONTRAST [CT] Stat Exams 06/20/18 06:57 Taken KNEE (3 VIEWS) Stat Exams 06/20/18 07:42 Taken SHOULDER Stat Exams 06/20/18 07:41 Taken CBC W DIFF Stat Lab 06/20/18 07:30 Completed CMP Stat Lab 06/20/18 07:30 Completed MAGNESIUM Stat Lab 06/20/18 07:30 Completed TROPONIN Q3H Lab 06/20/18 07:30 Completed TROPONIN Q3H Lab 06/20/18 10:00 Ordered TROPONIN Q3H Lab 06/20/18 13:00 Ordered TROPONIN Q3H Lab 06/20/18 16:00 Ordered TROPONIN Q3H Lab 06/20/18 19:00 Ordered UA W/RFX UR CULTURE Stat Lab 06/20/18 06:57 Ordered Medication Summary Discontinued Medications Generic Name Dose Route Start Last Admin Trade Name Freq PRN Reason Stop Dose Admin Ceftriaxone Sodium 1,000 mg 06/20/18 08:11 Rocephin 1000 Mg Inj IM 06/20/18 08:12 STAT ONE Ketorolac Tromethamine 60 mg 06/20/18 08:11 Toradol 30 Mg Injection IM 06/20/18 08:12 STAT ONE Lab/Rad Data: Laboratory Result Diagrams 06/20/18 07:30 06/20/18 07:30 Laboratory Results 06/20/18 06/20/18 06/20/18 Range/Units 07:30 07:30 07:30 WBC 15.4 H (4.0-10.5) K/mm3 RBC 4.48 (4.1-5.6) M/mm3 Hgb 12.4 L (12.5-18.0) gm/dl Hct 38.7 L (42-50) % MCV 86.4 (78-100) fl MCH 27.6 (26-32) pg MCHC 32.0 (32-36) g/dl RDW 14.7 H (11.5-14.0) % Plt Count 294 (150-450) K/mm3 MPV 9.9 H (6-9.5) fl Gran % 75.3 H (36.0-66.0) % Eos # (Auto) 0.42 (0-0.5) Absolute Lymphs (auto) 2.43 (1.0-4.6) Absolute Monos (auto) 0.90 (0.0-1.3) Lymphocytes % 15.8 L (24.0-44.0) % Monocytes % 5.8 (0.0-12.0) % Eosinophils % 2.7 (0.00-5.0) % Basophils % 0.4 (0.0-0.4) % Absolute Granulocytes 11.61 H (1.4-6.9) Basophils # 0.06 (0-0.4) Sodium 138 (137-145) mmol/L Potassium 5.1 (3.5-5.1) mmol/L Chloride 101 (98-107) mmol/L Carbon Dioxide 26 (22-30) mmol/L Anion Gap 16.1 H (5-15) MEQ/L BUN 39 H (9-20) mg/dL Creatinine 1.74 H (0.66-1.25) mg/dL Estimated GFR 45.1 ML/MIN Glucose 229 H (74-106) mg/dL Calcium 9.6 (8.4-10.2) mg/dL Magnesium 2.2 (1.6-2.3) mg/dL Total Bilirubin 0.20 (0.2-1.3) mg/dL AST 15 L (17-59) U/L ALT 11 (0-50) U/L Alkaline Phosphatase 95 (38-126) U/L Troponin I < 0.012 (0.000-0.034) ng/mL Serum Total Protein 7.8 (6.3-8.2) g/dL Albumin 3.9 (3.5-5.0) g/dL - Progress Progress: improved, pain not gone completely Counseled pt/family regarding: lab results, diagnosis, need for follow-up, rad results - Departure Departure Disposition: Home Clinical Impression: Dizziness, nonspecific Shoulder pain, right Qualifiers: Chronicity: acute Qualified Code(s): M25.511 - Pain in right shoulder Knee pain, right Qualifiers: Chronicity: acute Qualified Code(s): M25.561 - Pain in right knee Fall Qualifiers: Encounter type: initial encounter Qualified Code(s): W19.XXXA - Unspecified fall, initial encounter Condition: Stable Critical Care Time: Yes Critical Care Time(excluding separately billable procedures): 30-74 minutes Referrals: JOSUE DECKER [Primary Care Provider] - Instructions: Dizziness, Nonvertigo, (DC) Prescriptions: Naproxen 375 mg [Naprosyn 375 mg] 375 mg PO Q8H #30 tablet
[2018-06-20 07:53] LABS: BASOPHIL % 0.4 % (0.0-0.4); Basophil (Absolute #) 0.06 (0-0.4); Eosinophil % 2.7 % (0.00-5.0); Eosinophil (Absolute #) 0.42 (0-0.5); Granulocyte Absolute (ANC) 11.61 (1.4-6.9); Granulocytes % 75.3 % (36.0-66.0); Hematocrit 38.7 % (42-50); Hemoglobin 12.4 gm/dl (12.5-18.0); Lymphocyte (Absolute #) 2.43 (1.0-4.6); Lymphocytes % 15.8 % (24.0-44.0); Mean Cell Volume 86.4 fl (78-100); Mean Platelet Volume 9.9 fl (6-9.5); Monocytes % 5.8 % (0.0-12.0); Platelet Count 294 K/mm3 (150-450); Red Blood Count 4.48 M/mm3 (4.1-5.6); Red Cell Distribution Width 14.7 % (11.5-14.0); White Blood Count 15.4 K/mm3 (4.0-10.5)
[2018-06-20 07:56] LABS: Mean Corpuscular Hemoglobin 27.6 pg (26-32)
[2018-06-20 08:11] LABS: ALBUMIN 3.9 g/dL (3.5-5.0); ANION GAP 16.1 MEQ/L (5-15); BILIRUBIN,TOTAL 0.2 mg/dL (0.2-1.3); Calcium 9.6 mg/dL (8.4-10.2); Creatinine 1 1.74 mg/dL (0.66-1.25); MAGNESIUM 2.2 mg/dL (1.6-2.3); Potassium 5.1 mmol/L (3.5-5.1); Total Protein 7.8 g/dL (6.3-8.2)
[2018-06-20] MEDS ORDERED: TORAdol 30 mg Injection IM ONE (08:11)
[2018-06-20] MEDS ORDERED: Rocephin 1000 MG INJ IM ONE (08:11)
[2018-06-20] MEDS ORDERED: Rocephin 1000 MG INJ ONE (08:21)
[2018-06-20] MEDS ORDERED: TORAdol 30 mg Injection ONE ×2 (08:21→08:36)
[2018-06-20 08:45] VITALS: BP 138/84; PULSE 76
[2018-06-20 09:00] LABS: Appearance CLEAR (CLEAR); Bacteria RARE /HPF (NEGATIVE); Bilirubin NEGATIVE (NEGATIVE); Blood SMALL Ery/ul (0-5); Glucose NEGATIVE (NEGATIVE); Ketones NEGATIVE (NEGATIVE); Leukocyte Esterase NEGATIVE (NEGATIVE); Nitrite NEGATIVE (NEGATIVE); Protein,Urine Dip 100 (Negative); Urobilinogen NEGATIVE mg/dL (0-1)
--- NOTE | 2018-06-20 20:37 | XRAY ---
Indication: Pain following fall. Comparison: None 3 views of the right shoulder demonstrates moderate AC degenerative arthropathy and mild degenerative changes throughout the spine. No other bony, articular, or soft tissue abnormalities.
--- NOTE | 2018-06-20 20:39 | XRAY ---
Indication: Dizziness and near-syncope. Status post fall. Multiple contiguous axial images obtained through the head without contrast. Comparison: None Normal appearing brain parenchyma, ventricles, and bony calvarium. Visualized paranasal sinuses and mastoid air cells are clear. Impression: Normal CT head without contrast exam. Comment: Preliminary interpretation was made by [facility]. No discrepancy. CTDI 48.25
--- NOTE | 2018-06-20 20:40 | XRAY ---
Indication: Pain following fall. Comparison: August 02, 2014. 3 views of the right knee again demonstrates mild/moderate tricompartmental degenerative changes again greatest medial compartment. New nonspecific effusion. No other bony, articular, or soft tissue abnormalities.
== END 2018-06-20 08:46 | disposition home or self-care (01) ==
LOC: ED 06:29
DX: R42 Dizziness and giddiness (principal); M25.511 Pain in right shoulder; W06.XXXA Fall from bed, initial encounter; E11.9 Type 2 diabetes mellitus without complications; G62.9 Polyneuropathy, unspecified; M19.90 Unspecified osteoarthritis, unspecified site; F41.9 Anxiety disorder, unspecified; Z79.899 Other long term (current) drug therapy
CPT/HCPCS: 36415; 70450; 73030; 73562; 80053; 81001; 83735; 84484; 85025; 87086; 96372; 99284; J0696; J1885

== ENCOUNTER 2020-02-15 15:34 | Emergency (ER) | payer OTHER ==
[2020-02-15] MEDS ORDERED: Cathflo Activase 2 MG IV ONE (16:00)
[2020-02-15 16:13] VITALS: O2SAT 100
--- NOTE | 2020-02-15 17:07 | ERPHSYRPT ---
- History of Present Illness Time Seen by Provider: 02/15/20 15:35 Patient Subjective Stated Complaint: occluded picc line to right ac Triage Nursing Assessment: Patient brought back to ED via w/c and transferred to bed with assist of 1. Patient A+O X3. Patient's skin pink, warm and dry. Patient states he has a picc line to right ac that is occluded. Patient states he is receiving Merem IV every 8 hours at home for a few more days. Patient states his morning dose would not go in this am. Patient called his DrKo office and was instructed to come to ED. Physician History: 49 years old male with history of diabetes mellitus, bilateral below-knee amputation with infection in the right stump going to follow-up with wound care at [facility] currently on Merrem at home via PICC line presented in the ER and his PICC line was not working this morning. He tried to flush home and did not work. Patient denies any swelling or pain in the arm/chest. No fever or chills reported. Patient is advised by his doctor to report in the nearest emergency room. Timing/Duration: today Allergies/Adverse Reactions: oxycodone [Oxycodone] Adverse Reaction (Verified 02/15/20 15:44) hyper sensitive-night bruno and headache after 3 days Home Medications: Insulin Regular, Human [Humulin R] 1 unit SQ UD 11/17/13 [History] Gabapentin [Neurontin] 600 mg PO DAILY 01/11/14 [History] Promethazine HCl 25 mg [Phenergan 25 mg] 25 mg PO QID PRN 11/29/17 [History] Buspirone HCl [Buspar] 20 mg PO BID 03/16/19 [History] Lisinopril 5 mg [Zestril 5 MG] 5 mg PO UD 03/16/19 [History] Sertraline HCl 50 mg [Zoloft 50 mg Tablet] 50 mg PO BID 03/16/19 [History] carvediloL phosphate [Coreg Cr] 10 mg PO BID 03/16/19 [History] clonazePAM [Klonopin] 2 mg PO BID 03/16/19 [History] Insulin Detemir [Levemir] 24 units SQ BID 12/29/20 [History] Hx Tetanus, Diphtheria Vaccination/Date Given: Yes Hx Influenza Vaccination/Date Given: No Hx Pneumococcal Vaccination/Date Given: No Travel Risk - International Travel Have you traveled outside of the country in past 3 weeks: No - Coronavirus Screening Are you exhibiting any of the following symptoms?: No Close contact with a COVID-19 positive Pt in past 14-21 Days: No - Review of Systems Constitutional: No Symptoms Eyes: No Symptoms Ears, Nose, & Throat: No Symptoms Respiratory: No Symptoms Cardiac: No Symptoms Abdominal/Gastrointestinal: No Symptoms Genitourinary Symptoms: No Symptoms Skin: Skin Lesions Neurological: No Symptoms Psychological: No Symptoms - Past Medical History Pertinent Past Medical History: Yes Neurological History: Peripheral Neuropathy ENT History: No Pertinent History Cardiac History: Hypertension Respiratory History: No Pertinent History Endocrine Medical History: Diabetes Type II Musculoskeletal History: Other GI Medical History: No Pertinent History History: No Pertinent History Psycho-Social History: Anxiety, Depression, Panic Disorder Male Reproductive Disorders: No Pertinent History Other Medical History: MULTIPLE SURGERIES FOR 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 KNEE. HAND AND THUMB (r) - Social History Smoking Status: Current every day smoker How long have you smoked: 20+ Exposure to second hand smoke: Yes Drug Use: marijuana Patient Lives Alone: No - Nursing Vital Signs Nursing Vital Signs: Initial Vital Signs Pulse Rate 92 H 02/15/20 15:51 Respiratory Rate 18 02/15/20 15:51 Blood Pressure 143/87 02/15/20 15:51 O2 Sat by Pulse Oximetry 100 02/15/20 15:51 Pain Scale Pain Intensity 0 - Physical Exam General Appearance: no apparent distress Eye Exam: eyes nml inspection Ears, Nose, Throat Exam: pharynx normal Neck Exam: normal inspection, full range of motion Respiratory Exam: normal breath sounds, lungs clear Cardiovascular Exam: regular rate/rhythm, normal heart sounds Extremity Exam: normal inspection, normal range of motion, pelvis stable, other (No erythema swelling left upper extremity suggesting cellulitis are DVT. Good peripheral pulses in the left upper extremity.) Neurologic Exam: alert, oriented x 3, cooperative Skin Exam: normal color SpO2 Interpretation: normal SpO2: 100 O2 Delivery: Room Air Ordered Tests: Medication Summary Discontinued Medications Generic Name Dose Route Start Last Admin Trade Name Mari PRN Reason Stop Dose Admin Alteplase, Recombinant 2 mg 02/15/20 16:00 02/15/20 16:11 Cathflo Activase 2 Mg IV 02/15/20 16:01 2 mg NOW ONE Administration - Progress Progress: improved, re-examined Progress Note: 02/15/20 17:05 PICC line is flushed with TPA 2 mg and its cleared. Recommended continue with Merrem and outpatient follow-up with his doctor. Blood Culture(s) Obtained: No Antibiotics given: No Counseled pt/family regarding: diagnosis - Departure Departure Disposition: Home Clinical Impression: Occluded PICC line Qualifiers: Encounter type: initial encounter Qualified Code(s): T82.898A - Other specified complication of vascular prosthetic devices, implants and grafts, initial encounter Condition: Stable Critical Care Time: No Referrals: JOSUE DECKER [Primary Care Provider] - Follow Up with PCP/3 days Additional Instructions: /H all the time before and after antibiotic. Follow-up with your wound care and primary care. Return to ER for if there is occlusion of PICC line or have any swelling in the arm/pain/fever chills etc.
[2020-02-15 17:44] VITALS: BP 136/73; PULSE 88
== END 2020-02-15 17:44 | disposition home or self-care (01) ==
LOC: ED 15:34
DX: T82.898A Other specified complication of vascular prosthetic devices, implants and grafts, initial encounter (principal); T87.43 Infection of amputation stump, right lower extremity; I10 Essential (primary) hypertension; E11.9 Type 2 diabetes mellitus without complications; Z79.899 Other long term (current) drug therapy
CPT/HCPCS: 96374; 99283; J2997

== ENCOUNTER → 2020-11-29 09:49 | Emergency (ER) | payer OTHER ==
[~2020-11-29 09:49] MED LIST: DUONEB 0.5-3 MG/3 ml Neb IH ONE; MORPHINE SULFATE 4 MG INJ ONE; ROCEPHIN 2 Gm-D5w 50ML BAG** 2 G/50 ML IVPB IV ONE; Sodium Chloride 0.9% 1000 ML 1,000 ML IV ONE; TYLENOL EXTRA STRENGTH 500 MG ONE; Zithromax 500 MG/ 250 ML NaCl Premix 500 MG/250 ML IVPB IV ONE; Zofran 4 MG/2 ML VIAL ONE; solu-MEDROL ONE
--- NOTE | 2020-11-29 12:07 | ERPHSYRPT ---
- History of Present Illness Time Seen by Provider: 11/29/20 10:06 Source: patient, EMS Exam Limitations: no limitations Physician History: 50 years old male with history of poorly controlled diabetes mellitus/bilateral below-knee amputations, hypertension, hyperlipidemia presented in the ER with chief complaint of left neck swelling, throat pain and swelling of left medial sternal head area along with difficulty breathing. Patient reports this has been going on for the last few weeks, was evaluated yesterday outpatient and was prescribed Keflex but could not get it filled. Reports increasing difficulty breathing resting and it seems like something is stuck in his throat which he cannot clear. Also having mild difficulty swallowing solid food. No difficulty with liquids. Had a fever of 102 on presentation and this has been going off and on for the last few days. Reports blood sugar was not very well controlled and his insulin dose was increased recently. Has nausea of without vomiting. Timing/Duration: gradual onset, weeks Severity: moderate ENT Location: throat Prearrival Treatment: over the counter meds, prescription meds Modifying Factors: Worsens With: deep breath Associated Symptoms: fever, chills, swollen glands, sore throat, difficulty swallowing Allergies/Adverse Reactions: oxycodone [Oxycodone] Adverse Reaction (Verified 02/15/20 15:44) hyper sensitive-night bruno and headache after 3 days Home Medications: Insulin Regular, Human [Humulin R] 1 unit SQ UD 11/17/13 [History] Gabapentin [Neurontin] 600 mg PO DAILY 01/11/14 [History] Promethazine HCl 25 mg [Phenergan 25 mg] 25 mg PO QID PRN 11/29/17 [History] Buspirone HCl [Buspar] 20 mg PO BID 03/16/19 [History] Lisinopril 5 mg [Zestril 5 MG] 5 mg PO UD 03/16/19 [History] Sertraline HCl 50 mg [Zoloft 50 mg Tablet] 50 mg PO BID 03/16/19 [History] carvediloL phosphate [Coreg Cr] 10 mg PO BID 03/16/19 [History] clonazePAM [Klonopin] 2 mg PO BID 03/16/19 [History] Insulin Detemir [Levemir] 24 units SQ BID 02/15/20 [History] Hx Tetanus, Diphtheria Vaccination/Date Given: Yes Hx Influenza Vaccination/Date Given: No Hx Pneumococcal Vaccination/Date Given: No - Review of Systems Constitutional: Fever, Chills, Fatigue Eyes: No Symptoms Ears, Nose, & Throat: Throat Pain, Throat Swelling, Painful Swallowing Respiratory: Dyspnea Cardiac: No Symptoms Abdominal/Gastrointestinal: Nausea, No Abdominal Pain Genitourinary Symptoms: No Symptoms Musculoskeletal: Arthralgias, Deformity Skin: Skin Lesions Neurological: No Symptoms Psychological: Anxiety Hematologic/Lymphatic: No Symptoms Immunological/Allergic: No Symptoms - Past Medical History Pertinent Past Medical History: Yes Neurological History: Peripheral Neuropathy ENT History: No Pertinent History Cardiac History: Hypertension Respiratory History: No Pertinent History Endocrine Medical History: Diabetes Type II Musculoskeletal History: Other GI Medical History: No Pertinent History History: No Pertinent History Psycho-Social History: Anxiety, Depression, Panic Disorder Male Reproductive Disorders: No Pertinent History Other Medical History: MULTIPLE SURGERIES FOR 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 KNEE. HAND AND THUMB (r) - Social History Smoking Status: Current every day smoker How long have you smoked: 20+ Exposure to second hand smoke: Yes Drug Use: marijuana Patient Lives Alone: No - Physical Exam General Appearance: no apparent distress, alert, anxiety Eye Exam: bilateral eye: normal inspection, PERRL, EOMI Ear Exam: bilateral ear: auricle normal, canal normal, TM normal Nasal Exam: normal inspection Throat Exam: moist mucus membranes, pharynx swelling, pharynx tenderness, tonsillar swelling, No uvula swelling Neck Exam: supple, full range of motion, trachea midline, lymphadenopathy (L), tender lateral (Left sternomastoid area with erythema. No crepitus) Cardiovascular/Respiratory Exam: normal breath sounds, regular rate/rhythm, No chest non-tender (Left medial clavicular /sternal manubrial) Abdominal Exam: non-tender, soft, no organomegaly Neurologic Exam: alert, oriented x 3, cooperative Skin Exam: other (Multiple skin lesions on the abdomen, bilateral stumps without any obvious erythema discharge or signs of infection) SpO2 Interpretation: normal SpO2: 96 O2 Delivery: Room Air Ordered Tests: Active Orders 24 hr Category Date Time Status CHEST 1 VIEW (PORTABLE) Routine Exams 11/29/20 Ordered CLAVICLE Routine Exams 11/29/20 Ordered NECK WO CONTRAST [CT] Routine Exams 11/29/20 12:19 Ordered CBC Routine Lab 11/29/20 10:30 Completed CK-Creatinine Phosphokinase Routine Lab 11/29/20 10:30 Completed CMP Routine Lab 11/29/20 10:30 Completed LIPASE Routine Lab 11/29/20 10:30 Completed Lactic Acid Routine Lab 11/29/20 10:30 Received MAGNESIUM Routine Lab 11/29/20 10:30 Completed UA W/RFX UR CULTURE Routine Lab 11/29/20 10:30 Received Medication Summary Discontinued Medications Generic Name Dose Route Start Last Admin Trade Name Freq PRN Reason Stop Dose Admin Acetaminophen Confirm 11/29/20 10:50 Acetaminophen 500 Mg Tablet Administered 11/29/20 10:51 Dose 1,000 mg .ROUTE .STK-MED ONE Albuterol/Ipratropium Confirm 11/29/20 10:32 Ipratropium/Albuterol Sulfate 3 Ml Ampul.Neb Administered 11/29/20 10:33 Dose 3 ml IH .STK-MED ONE Methylprednisolone Sodium Succinate Confirm 11/29/20 10:51 Methylprednis Sod Succ 125 Mg/2 Ml Vial Administered 11/29/20 10:52 Dose 125 mg .ROUTE .STK-MED ONE Morphine Sulfate Confirm 11/29/20 10:51 Morphine Sulfate 4 Mg/Ml Injection Administered 11/29/20 10:52 Dose 4 mg .ROUTE .STK-MED ONE Ondansetron HCl Confirm 11/29/20 10:50 Ondansetron Hcl 4 Mg/2 Ml Vial Administered 11/29/20 10:51 Dose 4 mg .ROUTE .STK-MED ONE Lab/Rad Data: Laboratory Result Diagrams 11/29/20 10:30 11/29/20 10:30 Laboratory Results 11/29/20 11/29/20 11/29/20 Range/Units 10:30 10:30 10:30 WBC 17.4 H (4.0-10.5) K/mm3 RBC 3.22 L (4.1-5.6) M/mm3 Hgb 8.7 L (12.5-18.0) gm/dl Hct 26.0 L (42-50) % MCV 80.7 (78-100) fl MCH 27.0 (26-32) pg MCHC 33.5 (32-36) g/dl RDW 14.5 H (11.5-14.0) % Plt Count 296 (150-450) K/mm3 MPV 9.2 (7.5-11.0) fl Sodium 126 L (137-145) mmol/L Potassium 3.1 L (3.5-5.1) mmol/L Chloride 91 L (98-107) mmol/L Carbon Dioxide 24 (22-30) mmol/L Anion Gap 14.1 (5-15) MEQ/L BUN 33 H (9-20) mg/dL Creatinine 1.38 H (0.66-1.25) mg/dL Estimated GFR 58.5 ML/MIN Glucose 217 H (74-106) mg/dL Calcium 8.3 L (8.4-10.2) mg/dL Magnesium 1.8 (1.6-2.3) mg/dL Total Bilirubin 1.10 (0.2-1.3) mg/dL AST 50 (17-59) U/L ALT 77 H (0-50) U/L Alkaline Phosphatase 282 H (38-126) U/L Creatine Kinase 264 H (55-170) U/L Serum Total Protein 6.7 (6.3-8.2) g/dL Albumin 3.1 L (3.5-5.0) g/dL Lipase 16 L (23-300) U/L Group A Strep Antibody NOT DETECTED (NEGATIVE) - Progress Progress: unchanged Progress Note: 11/29/20 12:52 He is given Solu-Medrol, lung sounds bilateral clear to auscultation and more in the neck area. Chest x-ray negative for any acute cardiopulmonary findings. No acute sternal manubrial area findings osseous ramirez. Has white count of 17, mildly low potassium and sodium of 126. Given a dose of Rocephin and Zithromax. I have obtained CT neck without contrast which showed left sternocleidomastoid intramuscular and parapharyngeal abscesses with several tiny pockets of air bubbles along with prominent palatine tonsils with some narrowing of oropharynx. Left supraclavicular reactive lymphadenopathy. I believe patient needs ENT consultation along with IV antibiotics and steroid. Recommended transfer to [place] but patient states "I absolutely cannot go anywhere". Discussed with him in detail about seriousness of condition causing airway compromise which could be fatal but he does not want to be hospitalized. I have discussed with his and she have tried to convince him but he does not want to to be hospitalized at all. states "he has worse anxiety and would not stay in the hospital". I have discussed in length again with and patient about the worst outcome which can happen if abscess is not treated appropriately with IV antibiotics/drainage but they came up with the decision not to be hospitalized. I have tried to call hospital team and here for inpatient and also ENT in [place] but came out and told that he does not want anything to be done and wants to leave as quickly as possible. He was prescribed Keflex yesterday which he has not started. Patient ready to leave AMA and is not confused or altered at all. He understands the worse consequences. I would give him a short course of steroid and clindamycin to have something at home which is not the ideal treatment but is better than nothing. Discussed signs symptoms of worsening needing return to ER which she will think about. He has low sodium and potassium but refused to get IV normal saline R oral potassium. I will also send prescription of potassium. Discussed about increasing dose of insulin while being on steroid to avoid uncontrolled diabetes mellitus. Counseled pt/family regarding: lab results, diagnosis, need for follow-up, rad results - Departure Departure Disposition: AMA Clinical Impression: Parapharyngeal abscess, Cellulitis and abscess of neck, Hyponatremia Sepsis Qualifiers: Sepsis type: sepsis due to unspecified organism Severe sepsis acute organ dysfunction type: acute liver failure Hepatic coma status: unspecified Severe s epsis shock status: without septic shock Condition: Fair Critical Care Time: No Referrals: JOSUE DECKER [Primary Care Provider] - (Tomorrow for reevaluation) GARRET HANCOCK [NON-STAFF PHY W/O PRIVILEGES] - (Call today for appointment) Instructions: Peritonsillar Abscess, Adult (DC) Additional Instructions: Take Tylenol as needed for fever and pain control. Follow-up with primary care and ENT for reevaluation. Continue with antibiotics and steroids. Watch your blood sugar closely while being on steroid and may need to increase dose of insulin as recommended. Return to ER for worsening swelling in the neck, difficulty breathing/swallowing, persistent high-grade fever etc. Prescriptions: Clindamycin HCl 150 mg [Cleocin 150 mg Capsule] 2 cap PO QID #56 cap Dexamethasone [Decadron] 6 mg PO DAILY #5 tablet Potassium Chloride 10 Meq Tab* [Klor Con 10 MEQ] 10 meq PO BID #10 tab
[2020-11-29 12:23] LABS: Hemoglobin 8.7 gm/dl (12.5-18.0); Mean Cell Volume 80.7 fl (78-100); Mean Corpuscular Hgb Concent. 33.5 g/dl (32-36); Platelet Count 296 K/mm3 (150-450); Red Blood Count 3.22 M/mm3 (4.1-5.6); Red Cell Distribution Width 14.5 % (11.5-14.0); White Blood Count 17.4 K/mm3 (4.0-10.5)
[2020-11-29 12:25] LABS: Mean Platelet Volume 9.2 fl (7.5-11.0)
[2020-11-29 12:43] LABS: ALBUMIN 3.1 g/dL (3.5-5.0); BILIRUBIN,TOTAL 1.1 mg/dL (0.2-1.3); Calcium 8.3 mg/dL (8.4-10.2); Creatinine 1 1.38 mg/dL (0.66-1.25); EST GLOMERULAR FILTRATION RATE 58.5 ML/MIN; MAGNESIUM 1.8 mg/dL (1.6-2.3); Potassium 3.1 mmol/L (3.5-5.1); Total Protein 6.7 g/dL (6.3-8.2)
[2020-11-29 12:45] LABS: ANION GAP 14.1 MEQ/L (5-15)
[2020-11-29 13:11] VITALS: O2SAT 96
== END ==
LOC: ED 09:49
DX: J39.0 Retropharyngeal and parapharyngeal abscess (principal); L03.221 Cellulitis of neck; L02.11 Cutaneous abscess of neck; E87.1 Hypo-osmolality and hyponatremia
CPT/HCPCS: 36415; 70490; 71045; 73000; 80053; 82550; 83690; 83735; 85027; 87651; 94640; J0456; J0696; J2270; J2405; J2930; A9270-GY

== ENCOUNTER → 2020-11-29 | Emergency (ER) | payer OTHER ==
--- NOTE | 2020-11-29 14:19 | XRAY ---
Indication: Left neck abscess. Comparison: None 2 view left clavicle demonstrates mild AC degenerative arthropathy. Left neck subcutaneous emphysema further detailed on same-day CT neck exam. No other bony, articular, or soft tissue abnormalities.
--- NOTE | 2020-11-29 14:19 | XRAY ---
Indication: Left-sided abscess. Multiple contiguous axial images obtained through the neck without contrast as ordered. Sagittal and coronal reformatted images obtained. Cutaneous BB placed over region of interest. Left midneck cutaneous BB anterior lateral, approximately C4 level. Underlying sternocleidomastoid muscle appears diffusely prominent/edematous with intramuscular pocket of fluid/air measuring at least 3.1 x 1.7 x 5.5 cm in greatest AP, transverse, and CC projections respectively. Findings favor intramuscular abscess. There is also parapharyngeal abscess with tiny air bubbles measuring at least 1.6 x 3.0 x 7.4 cm narrows the oropharynx. Additional intramuscular tiny air bubbles seen of the more inferior left sternocleidomastoid and left/right infrahyoid muscles. Prominent bilateral palatine tonsils left greater than right along with the parapharyngeal abscess markedly narrows the oropharynx. Prominent left supraclavicular lymph nodes presumed reactive, largest 1.3 x 1.6 cm. Parotid and submandibular glands are unremarkable. Thyroid gland homogeneous. Mild bilateral carotid bulb calcifications. Osseous structures and cervical spine intact. No suspicious bony lesions are osseous destructive process. Base of the brain and lung apices are unremarkable. Impression: CT neck without contrast exam demonstrates left sternocleidomastoid intramuscular and parapharyngeal abscesses with several tiny pockets of air bubbles as detailed. Findings along with prominent palatine tonsils markedly narrows the oropharynx. Left supraclavicular reactive lymph nodes. Comment: Telephone report was given to ordering clinician Dr. Espinosa at 1146 hrs. on November 29, 2020
--- NOTE | 2020-11-29 14:19 | XRAY ---
Indication: Left neck abscess. Comparison: None Portable chest demonstrates hazy right base airspace opacity. Remaining heart and lungs unremarkable. Bony thorax intact. CT neck reported separately.
== END ==
LOC: ED 09:49
DX: J39.1 Other abscess of pharynx (principal); R07.0 Pain in throat; E11.9 Type 2 diabetes mellitus without complications; I10 Essential (primary) hypertension; F41.9 Anxiety disorder, unspecified; Z53.9 Procedure and treatment not carried out, unspecified reason
CPT/HCPCS: 70490; 71045; 73000

== ENCOUNTER 2020-11-30 08:53 | Emergency (ER) | payer OTHER ==
[2020-11-30] MEDS ORDERED: VANCOMYCIN 1 GRAM/200 ML BAG 1 GM/200 ML PIGGYBACK IV ONE ×2 (09:39→10:42)
[2020-11-30 09:40] VITALS: O2SAT 96
[2020-11-30] MEDS ORDERED: Zosyn 3.375 GM Vial 3.375 GM in Sodium Chloride 100ML MINI-BAG PLUS 100 ML IV ONE (09:40)
[2020-11-30] MEDS ORDERED: Sodium Chloride 0.9% 1000 ML 1,000 ML IV SCH (09:45)
[2020-11-30] MEDS ORDERED: Sodium Chloride 100ML MINI-BAG PLUS 100 ML IV ONE (09:47)
[2020-11-30] MEDS ORDERED: Zosyn 3.375 GM Vial IV ONE (09:47)
[2020-11-30] MEDS ORDERED: Sodium Chloride 0.9% 1000 ML 1,000 ML ONE (09:47)
[2020-11-30 10:08] LABS: Absolute Neutrophil Ct (ANC) 17.19 (1.4-6.9); Basophil (Absolute #) 0 (0-0.4); Eosinophil (Absolute #) 0 (0-0.5); Hematocrit 28.4 % (42-50); Hemoglobin 9.5 gm/dl (12.5-18.0); Lymphocyte (Absolute #) 0.44 (1.0-4.6); Lymphocytes % 2.4 % (24.0-44.0); Mean Cell Volume 79.3 fl (78-100); Mean Corpuscular Hemoglobin 26.5 pg (26-32); Mean Corpuscular Hgb Concent. 33.5 g/dl (32-36); Mean Platelet Volume 9.8 fl (7.5-11.0); Monocyte (Absolute #) 0.88 (0.0-1.3); Monocytes % 4.8 % (0.0-12.0); Neutrophil % 92.8 % (36.0-66.0); Platelet Count 215 K/mm3 (150-450); Red Blood Count 3.58 M/mm3 (4.1-5.6); Red Cell Distribution Width 14.5 % (11.5-14.0); White Blood Count 18.5 K/mm3 (4.0-10.5)
[2020-11-30 10:17] LABS: ALBUMIN 3.1 g/dL (3.5-5.0); ALKALINE PHOSPHATASE 260 U/L (38-126); ANION GAP 16.2 MEQ/L (5-15); BLOOD UREA NITROGEN 34 mg/dL (9-20); CHLORIDE 89 mmol/L (98-107); Calcium 8.4 mg/dL (8.4-10.2); Carbon Dioxide 24 mmol/L (22-30); Creatinine 1 1.16 mg/dL (0.66-1.25); EST GLOMERULAR FILTRATION RATE > 60.0 ML/MIN; Glucose 328 mg/dL (74-106); Potassium 3.3 mmol/L (3.5-5.1); SGOT/AST 139 U/L (17-59); SGPT/ALT 76 U/L (0-50); SODIUM 127 mmol/L (137-145); Total Protein 6.6 g/dL (6.3-8.2)
--- NOTE | 2020-11-30 10:39 | ERPHSYRPT ---
- History of Present Illness Time Seen by Provider: 11/30/20 09:20 Source: patient Exam Limitations: no limitations Patient Subjective Stated Complaint: throat pain-abscess to throat Triage Nursing Assessment: Patient brought back to ED via w/c and transferred self to bed. Patient A+O x3. Patient's skin pink, warm and dry. Patient complains of throat pain 11/26. Patient was seen in ER yesterday and signed out AMA for throat abscess. Physician History: Patient is a 50-year-old male presents to our ED for transfer to outside hospital for ENT evaluation and treatment of a neck abscess. Patient was in our ER last night. Patient was evaluated for swelling to his left neck. Patient also complained of some difficulty breathing swallowing and fevers. Patient had a CAT scan. CAT scan revealed a left states sternocleidomastoid and parapharyngeal abscess. Patient was set to transfer to an outside hospital for ENT evaluation. For unclear reasons patient decided to leave AGAINST MEDICAL ADVICE. Patient is here because he feels his symptoms are worsening. states that she intended to take him directly to [facility] however she was unable to do so because she could not afford gas in her vehicle per . Patient has a history of diabetes. He is a bilateral below-knee amputation. Diabetes is poorly controlled. Patient denies chest pain. No nausea or vomiting. No diaphoresis. Symptoms are moderate in intensity. No specific worsening improving factors. He voices no other complaints or concerns at this time. Timing/Duration: week(s) (Patient's symptoms have been progressive over the past 3 weeks.) Severity: moderate Modifying Factors: Improves With: nothing Associated Symptoms: fever Allergies/Adverse Reactions: oxycodone [Oxycodone] Adverse Reaction (Verified 11/30/20 09:06) hyper sensitive-night bruno and headache after 3 days Home Medications: Insulin Regular, Human [Humulin R] 1 unit SQ UD 11/17/13 [History] Gabapentin [Neurontin] 600 mg PO DAILY 01/11/14 [History] Promethazine HCl 25 mg [Phenergan 25 mg] 25 mg PO QID PRN 11/29/17 [History] Buspirone HCl [Buspar] 20 mg PO BID 03/16/19 [History] Lisinopril 5 mg [Zestril 5 MG] 5 mg PO UD 03/16/19 [History] Sertraline HCl 50 mg [Zoloft 50 mg Tablet] 50 mg PO BID 03/16/19 [History] carvediloL phosphate [Coreg Cr] 10 mg PO BID 03/16/19 [History] clonazePAM [Klonopin] 2 mg PO BID 03/16/19 [History] Insulin Detemir [Levemir] 24 units SQ BID 02/15/20 [History] Hx Tetanus, Diphtheria Vaccination/Date Given: Yes Hx Influenza Vaccination/Date Given: No Hx Pneumococcal Vaccination/Date Given: No Immunizations Up to Date: Yes Travel Risk - International Travel Have you traveled outside of the country in past 3 weeks: No - Coronavirus Screening Are you exhibiting any of the following symptoms?: No Close contact with a COVID-19 positive Pt in past 14-21 Days: No - Vaccine Status Have you recieved a Covid-19 vaccination: Yes Retail Product Advisor: Moderna - Vaccination Dates Date of 2cond Vaccination (if applicable): September 2020 - Review of Systems Constitutional: No Symptoms, No Fever, No Chills Eyes: No Symptoms Ears, Nose, & Throat: No Symptoms Respiratory: No Symptoms, No Cough, No Dyspnea Cardiac: No Symptoms, No Chest Pain, No Edema, No Syncope Abdominal/Gastrointestinal: No Symptoms, No Abdominal Pain, No Nausea, No Vomiting, No Diarrhea Genitourinary Symptoms: No Symptoms, No Dysuria Musculoskeletal: No Symptoms, No Back Pain, No Neck Pain Skin: No Symptoms, No Rash Neurological: No Symptoms, No Dizziness, No Focal Weakness, No Sensory Changes Psychological: No Symptoms Endocrine: No Symptoms Hematologic/Lymphatic: No Symptoms Immunological/Allergic: No Symptoms All Other Systems: Reviewed and Negative - Past Medical History Pertinent Past Medical History: Yes Neurological History: Peripheral Neuropathy ENT History: No Pertinent History Cardiac History: Hypertension Respiratory History: No Pertinent History Endocrine Medical History: Diabetes Type II Musculoskeletal History: Other GI Medical History: No Pertinent History History: No Pertinent History Psycho-Social History: Anxiety, Depression, Panic Disorder Male Reproductive Disorders: No Pertinent History Other Medical History: MULTIPLE SURGERIES FOR 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 KNEE. HAND AND THUMB (r) - Social History Smoking Status: Current every day smoker How long have you smoked: 20+ Exposure to second hand smoke: Yes Drug Use: marijuana Patient Lives Alone: No - Nursing Vital Signs Nursing Vital Signs: Initial Vital Signs Temperature 99.1 F 11/30/20 09:07 Pulse Rate 97 H 11/30/20 09:07 Respiratory Rate 18 11/30/20 09:07 Blood Pressure 140/86 11/30/20 09:07 O2 Sat by Pulse Oximetry 99 11/30/20 09:07 Pain Scale Pain Intensity 0 - Physical Exam General Appearance: no apparent distress, alert Eye Exam: PERRL/EOMI, eyes nml inspection Ears, Nose, Throat Exam: normal ENT inspection, TMs normal, pharynx normal, moist mucous membranes Neck Exam: normal inspection, non-tender, supple, full range of motion Respiratory Exam: normal breath sounds, lungs clear, No respiratory distress Cardiovascular Exam: regular rate/rhythm, normal heart sounds, normal peripheral pulses Gastrointestinal/Abdomen Exam: soft, normal bowel sounds, No tenderness, No mass Back Exam: normal inspection, normal range of motion, No CVA tenderness, No vertebral tenderness Extremity Exam: normal inspection, normal range of motion, pelvis stable Neurologic Exam: alert, oriented x 3, cooperative, normal mood/affect, nml cerebellar function, nml station & gait, sensation nml, No motor deficits Skin Exam: normal color, warm, dry, No rash Lymphatic Exam: No adenopathy SpO2: 96 - Course Nursing assessment & vital signs reviewed: Yes Ordered Tests: Active Orders 24 hr Category Date Time Status Church Supervisor STAT Care 11/30/20 09:33 Active IV Insertion STAT Care 11/30/20 09:32 Active Pulse Oximetry (ED) STAT Care 11/30/20 09:32 Active BLOOD CULTURE Stat Lab 11/30/20 09:57 Received CBC W DIFF Stat Lab 11/30/20 09:53 Completed CMP Stat Lab 11/30/20 09:53 Completed Lactic Acid Stat Lab 11/30/20 10:00 Completed Manual Differential NC Stat Lab 11/30/20 09:53 Completed Medication Summary Generic Name Dose Route Start Last Admin Trade Name Freq PRN Reason Stop Dose Admin Sodium Chloride 1,000 mls @ 100 mls/hr 11/30/20 09:45 11/30/20 09:48 Sodium Chloride 0.9% 1000 Ml IV 12/30/20 09:44 100 mls/hr .Q10H ANY Administration Vancomycin HCl 1 gm in 200 mls @ 125 mls/hr 11/30/20 09:39 11/30/20 10:44 Vancomycin 1 Gram/200 Ml Bag IV 11/30/20 11:14 125 mls/hr STAT ONE 125 mls/hr Administration Potassium Chloride 20 meq in 100 mls @ 50 mls/hr 11/30/20 11:00 Potassium Chloride 20 Meq In Water 100ml IV 11/30/20 14:59 Q2H ANY Discontinued Medications Generic Name Dose Route Start Last Admin Trade Name Mari PRN Reason Stop Dose Admin Piperacillin Sod/Tazobactam 100 mls @ 200 mls/hr 11/30/20 09:40 11/30/20 09:48 Sod 3.375 gm/ Sodium Chloride IV 11/30/20 10:09 200 mls/hr STAT ONE Administration Sodium Chloride Confirm 11/30/20 09:47 Sodium Chloride 100ml Mini-Bag Plus Administered 11/30/20 09:48 Dose 100 mls @ ud IV .STK-MED ONE Vancomycin HCl Confirm 11/30/20 10:42 Vancomycin 1 Gram/200 Ml Bag Administered 11/30/20 10:43 Dose 1 gm in 200 mls @ ud IV .STK-MED ONE Piperacillin Sod/Tazobactam Sod Confirm 11/30/20 09:47 Piperacillin/Tazobactam Sodium 3.375 Gm Vial Administered 11/30/20 09:48 Dose 3.375 gm IV .STK-MED ONE Lab/Rad Data: Laboratory Result Diagrams 11/30/20 09:53 11/30/20 09:53 Laboratory Results 11/30/20 11/30/20 11/30/20 Range/Units 10:00 09:53 09:53 WBC 18.5 H (4.0-10.5) K/mm3 RBC 3.58 L (4.1-5.6) M/mm3 Hgb 9.5 L (12.5-18.0) gm/dl Hct 28.4 L (42-50) % MCV 79.3 (78-100) fl MCH 26.5 (26-32) pg MCHC 33.5 (32-36) g/dl RDW 14.5 H (11.5-14.0) % Plt Count 215 (150-450) K/mm3 MPV 9.8 (7.5-11.0) fl Gran % 92.8 H (36.0-66.0) % Eos # (Auto) 0 (0-0.5) Absolute Lymphs (auto) 0.44 L (1.0-4.6) Absolute Monos (auto) 0.88 (0.0-1.3) Lymphocytes % 2.4 L (24.0-44.0) % Monocytes % 4.8 (0.0-12.0) % Eosinophils % 0.0 (0.00-5.0) % Basophils % 0.0 (0.0-0.4) % Absolute Granulocytes 17.19 H (1.4-6.9) Basophils # 0 (0-0.4) Sodium 127 L (137-145) mmol/L Potassium 3.3 L (3.5-5.1) mmol/L Chloride 89 L (98-107) mmol/L Carbon Dioxide 24 (22-30) mmol/L Anion Gap 16.2 H (5-15) MEQ/L BUN 34 H (9-20) mg/dL Creatinine 1.16 (0.66-1.25) mg/dL Estimated GFR > 60.0 ML/MIN Glucose 328 H (74-106) mg/dL Lactic Acid 1.5 (0.4-2.0) Calcium 8.4 (8.4-10.2) mg/dL Total Bilirubin 1.10 (0.2-1.3) mg/dL AST 139 H (17-59) U/L ALT 76 H (0-50) U/L Alkaline Phosphatase 260 H (38-126) U/L Serum Total Protein 6.6 (6.3-8.2) g/dL Albumin 3.1 L (3.5-5.0) g/dL - Progress Progress: improved Progress Note: Patient reassessed. He feels better at this time. Case discussed with Dr. Villanueva ER physician at [facility] who accepted ER to ER transfer. I spoke to Dr. Garcia of ENT who accepts transfer in consultation. Plan of care discussed with patient and . They agree to transfer to [facility] for further evaluation and treatment. Portions of this note were created with voice recognition technology. There may be grammatical, spelling, punctuation or sound alike errors 11/30/20 10:43 Work-up reveals a leukocytosis. Antibiotics infused. Patient received vancomycin and Zosyn. Chemistry reveals hyponatremia and hypokalemia. IV fluids infusing. Potassium rider ordered. Patient resting comfortably. 11/30/20 10:52 Counseled pt/family regarding: lab results, diagnosis, rad results - Departure Departure Disposition: Transfer Clinical Impression: Sternocleidomastoid abscess, Parapharyngeal abscess, Leukocytosis, Anemia, Hyponatremia, Hypokalemia Condition: Stable Critical Care Time: No Referrals: JOSUE DECKER [Primary Care Provider] -
[2020-11-30 10:46] VITALS: PULSE 95
[2020-11-30] MEDS ORDERED: POTASSIUM CHLORIDE 20 mEq IN WATER 100ML 20 MEQ/100 ML BAG IV SCH (11:00)
[2020-11-30 11:53] VITALS: BP 138/86
[2020-11-30 13:49] LABS: Lymphocytes 3 % (24-44); Monocyte 3 % (0.0-12.0); Neutrophils 94 % (36.-66.); Total Cells Counted 100
[2020-11-30 13:50] LABS: Microcytosis 1+; Platelet Estimate NORMAL (NORMAL); Targert Cells 1+
== END 2020-11-30 14:06 | disposition short-term general hospital (02) ==
LOC: ED 08:53
DX: L03.313 Cellulitis of chest wall (principal); D72.829 Elevated white blood cell count, unspecified; D64.9 Anemia, unspecified; E87.1 Hypo-osmolality and hyponatremia
CPT/HCPCS: 36000; 36415; 80053; 83605; 85025; 87040; 87077; 87186; 93041; 94760; 96365; 96366; 99285; J3480; J3370